=== PATIENT | male | born 1955 | race Caucasian/White ===

== ENCOUNTER 2016-04-17 17:07 | Inpatient (IN) | payer BC ==
[~2016-04-17] VITALS: Ht 180.3 cm; Wt 109.5 kg
[2016-04-18] MEDS ORDERED: CALCIUM 600MG+D1 TAB PO (11:06)
[2016-04-18] MEDS ORDERED: FISH OIL 1000MG1 CAP PO (11:07)
[2016-04-18] MEDS ORDERED: GARLIC100 MG PO (11:08)
[2016-04-18] MEDS ORDERED: COZAAR 50MG50 MG/TAB PO (11:10)
[2016-04-18] MEDS ORDERED: TOPROL XL 25MG25 MG PO (11:11)
[2016-04-18] MEDS ORDERED: ZOCOR 40MG40 MG PO (11:12)
[2016-04-18] MEDS ORDERED: ROXICODONE 55 MG/TAB PO (11:13)
[2016-04-18] MEDS ORDERED: OXYCONTIN 10MG10 MG PO (11:16)
[2016-04-19 05:12] VITALS: BP 125/57; PULSE 74; TEMP 98
[2016-04-19 06:50] VITALS: BP 120/49; PULSE 96; TEMP 98.5
[2016-04-19 18:00] VITALS: BP 121/57; PULSE 91; TEMP 98.1
[2016-04-20 05:14] VITALS: BP 112/56; PULSE 70; TEMP 96.7
[2016-04-20 07:25] LABS: BASO % 0.4 % (0.0-2.0); EOS # 0.2 (0.0-0.7); EOS % 2.4 % (0-4.0); GRAN % 59.8 % (42.2-75.2); LYMPH # 1.9 (1.2-3.4); LYMPH % 22.8 % (20.0-51.0); MEAN CELL VOLUME 93 fl (80.0-100.0); MEAN CORPUSCULAR HGB CONC 33 g/dl (33.0-37.0); MEAN PLATELET VOLUME 10.5 fl (7.4-10.4); MONO # 1.1 (0.1-0.6); MONO % 13.6 % (1.7-9.3); PLATELET COUNT 246 K/mm3 (130-400); RED BLOOD COUNT 3.11 M/mm3 (4.20-5.60); REDCELL DISTRIBUTION WIDTH-CV 12.8 % (11.5-14.5); WHITE BLOOD COUNT 8.4 K/mm3 (4.8-10.8)
[2016-04-20 07:31] LABS: HEMOGLOBIN 9.7 g/dl (13.5-18.0); MEAN CORPUSCULAR HEMOGLOBIN 31 pg (27.0-31.0)
[2016-04-20 07:32] LABS: CALCIUM 8.7 mg/dL (8.4-10.2); CREATININE, serum 0.62 mg/dL (0.66-1.25)
[2016-04-20 18:21] VITALS: BP 118/61; PULSE 93; TEMP 99.1
[2016-04-21 04:16] VITALS: BP 135/98; PULSE 66; TEMP 98
[2016-04-21 18:00] VITALS: BP 128/63; PULSE 87; TEMP 98.1
[2016-04-22 03:35] VITALS: BP 118/54; PULSE 74; TEMP 97.4
[2016-04-22 18:00] VITALS: BP 113/52; PULSE 83; TEMP 97.8
[2016-04-23 03:10] VITALS: BP 120/58; PULSE 67; TEMP 97.8
[2016-04-23 17:49] VITALS: BP 107/50; PULSE 94; TEMP 98.2
[2016-04-24 04:43] VITALS: BP 111/50; PULSE 66; TEMP 98.4
[2016-04-24 16:38] VITALS: BP 126/57; PULSE 86; TEMP 98.5
[2016-04-25 05:08] VITALS: BP 117/56; PULSE 71; TEMP 97.4
[2016-04-25 16:18] VITALS: BP 120/53; PULSE 78; TEMP 98
[2016-04-26 04:40] VITALS: BP 115/51; PULSE 68; TEMP 97.5
[2016-04-26 16:09] VITALS: BP 104/39; PULSE 87; TEMP 97.6
[2016-04-27 06:18] VITALS: BP 127/65; PULSE 75; TEMP 98.7
[2016-04-27 16:02] VITALS: BP 105/56; PULSE 83; TEMP 98.2
[2016-04-28 06:28] VITALS: BP 130/58; PULSE 74; TEMP 98.3
[2016-04-28 16:27] VITALS: BP 97/34; PULSE 79; TEMP 98
[2016-04-29 05:45] VITALS: BP 122/45; PULSE 68; TEMP 98.3
[2016-04-29] MEDS ORDERED: TYLENOL 325MG325 MG PO (11:03)
[2016-04-29] MEDS ORDERED: DEEP SEA 45 ML45 ML NS (11:04)
[2016-04-29] MEDS ORDERED: ROXICODONE 55 MG/TAB PO (11:04)
== END 2016-04-29 13:32 | disposition home or self-care (01) | DRG 950 ==
PROVIDERS: Internal Medicine
DX: S43.51XD Sprain of right acromioclavicular joint, subsequent encounter (principal); V49.9XXD Car occupant (driver) (passenger) injured in unspecified traffic accident, subsequent encounter; I10 Essential (primary) hypertension; S22.41XD Multiple fractures of ribs, right side, subsequent encounter for fracture with routine healing
CPT/HCPCS: 99222-AI; 99232-AI; 99239; J1650

== ENCOUNTER 2016-06-02 08:20 | Day surgery (SDC) | payer BC ==
[2016-06-02] VITALS (509 sets, daily range): BP systolic 107–127; BP diastolic 54–88; PULSE 47–85; TEMP 97–97.9; O2SAT 91–98
[~2016-06-02] VITALS: Ht 180.3 cm; Wt 104.5 kg
[~2016-06-02 08:20] MED LIST: CALCIUM 600MG+D1 TAB PO; COZAAR 50MG50 MG/TAB PO; DEEP SEA 45 ML45 ML NS; FISH OIL 1000MG1 CAP PO; GARLIC100 MG PO; OXYCONTIN 10MG10 MG PO; ROXICODONE 55 MG/TAB PO; TOPROL XL 25MG25 MG PO; TYLENOL 325MG325 MG PO; ZOCOR 40MG40 MG PO
[2016-06-02 09:02] LABS: HEMATOCRIT 38.3 % (42.0-52.0); HEMOGLOBIN 12.5 g/dl (13.5-18.0); MEAN CELL VOLUME 93 fl (80.0-100.0); MEAN CORPUSCULAR HEMOGLOBIN 30 pg (27.0-31.0); MEAN CORPUSCULAR HGB CONC 33 g/dl (33.0-37.0); MEAN PLATELET VOLUME 10.6 fl (7.4-10.4); PLATELET COUNT 270 K/mm3 (130-400); RED BLOOD COUNT 4.11 M/mm3 (4.20-5.60); REDCELL DISTRIBUTION WIDTH-CV 13.3 % (11.5-14.5); WHITE BLOOD COUNT 5.5 K/mm3 (4.8-10.8)
[2016-06-02] MEDS ORDERED: MULTI VITAMINS1 TAB PO (09:06)
[2016-06-02] MEDS ORDERED: FLOMAX 0.40.4 MG/CAP PO (09:06)
[2016-06-02] MEDS ORDERED: COLACE 100100 MG/CAP PO (09:07)
[2016-06-02] MEDS ORDERED: ASPIRIN E.C. 8181 MG PO (09:07)
[2016-06-02] MEDS ORDERED: MELATONIN5 M1 SL (09:08)
[2016-06-02 09:13] LABS: CALCIUM 9.5 mg/dL (8.4-10.2); CREATININE, serum 0.6 mg/dL (0.66-1.25); POTASSIUM 4.7 mmol/L (3.4-5.0)
[2016-06-02 09:17] LABS: PROTHROMBIN TIME 11.6 SECONDS (9.7-12.8)
[2016-06-03] VITALS (531 sets, daily range): BP systolic 111–129; BP diastolic 58–78; PULSE 61–70; TEMP 97.8–98.3; O2SAT 90–98
[2016-06-03 05:49] LABS: BASO % 0.4 % (0.0-2.0); EOS # 0.2 (0.0-0.7); GRAN # 4.2 (1.4-6.5); GRAN % 59.3 % (42.2-75.2); HEMATOCRIT 35.6 % (42.0-52.0); HEMOGLOBIN 11.6 g/dl (13.5-18.0); LYMPH % 28.9 % (20.0-51.0); MEAN CELL VOLUME 93 fl (80.0-100.0); MEAN CORPUSCULAR HEMOGLOBIN 30 pg (27.0-31.0); MEAN CORPUSCULAR HGB CONC 33 g/dl (33.0-37.0); MEAN PLATELET VOLUME 10.2 fl (7.4-10.4); MONO # 0.6 (0.1-0.6); MONO % 8.3 % (1.7-9.3); PLATELET COUNT 256 K/mm3 (130-400); RED BLOOD COUNT 3.82 M/mm3 (4.20-5.60); REDCELL DISTRIBUTION WIDTH-CV 13.5 % (11.5-14.5); WHITE BLOOD COUNT 7.1 K/mm3 (4.8-10.8)
[2016-06-03 06:01] LABS: CALCIUM 8.9 mg/dL (8.4-10.2); CREATININE, serum 0.64 mg/dL (0.66-1.25); POTASSIUM 4.2 mmol/L (3.4-5.0)
[2016-06-03] MEDS ORDERED: BRILINTA90 MG PO (11:41)
[2016-06-03] MEDS ORDERED: NITRO-DUR0.2 MG/PAT TD (14:03)
== END 2016-06-03 14:36 | disposition home or self-care (01) ==
LOC: COL.CAR 08:20 → ICU 12:17 → IMCU 18:00 → COL.CAR 06-03 14:36
PROVIDERS: Internal Medicine Cardiovascular Disease
DX: I25.10 Atherosclerotic heart disease of native coronary artery without angina pectoris (principal); R06.00 Dyspnea, unspecified; R07.9 Chest pain, unspecified; I10 Essential (primary) hypertension; E78.5 Hyperlipidemia, unspecified; E11.9 Type 2 diabetes mellitus without complications; G47.33 Obstructive sleep apnea (adult) (pediatric); Z87.891 Personal history of nicotine dependence; E66.9 Obesity, unspecified
CPT/HCPCS: OP; C1725; C1760; C1769; C1874; C1887; C9600; J0583; J2250; J3010; Q9967

== ENCOUNTER → 2017-05-10 | Outpatient (CLI) | payer BC ==
[~2017-05-10] MED LIST changes: +ASPIRIN E.C. 8181 MG PO; +BRILINTA90 MG PO; +COLACE 100100 MG/CAP PO; +FLOMAX 0.40.4 MG/CAP PO; +MELATONIN5 M1 SL; +MULTI VITAMINS1 TAB PO; +NITRO-DUR0.2 MG/PAT TD
== END ==
LOC: COL.RAD 12:17
DX: I62.00 Nontraumatic subdural hemorrhage, unspecified (principal)

== ENCOUNTER 2019-01-20 14:25 | Inpatient (IN) | payer BC ==
[~2019-01-20] VITALS: Ht 180.3 cm; Wt 101.8 kg
[2019-01-23] VITALS (12 sets, daily range): BP systolic 103–131; BP diastolic 40–71; PULSE 48–73; TEMP 97.3–98.3
[2019-01-23] MEDS ORDERED: PLAVIX 75MG TAB75 MG PO (02:49)
[2019-01-23] MEDS ORDERED: EPA FISH OIL1 SGL PO (02:50)
[2019-01-23] MEDS ORDERED: LIPITOR 40MG TA40 MG PO (02:54)
[2019-01-23] MEDS ORDERED: FOLIC ACID 11 MG/TA1 PO (04:22)
[2019-01-23] MEDS ORDERED: NATURAL IRON65 MG (04:24)
[2019-01-23] MEDS ORDERED: VITAMIN C500 MG PO (04:26)
[2019-01-23] MEDS ORDERED: NORCO 325 MG-51 TAB PO (04:27)
--- NOTE | 2019-01-23 09:50 | NUR ---
returned to room per bed from PACU, awake and alert, IV infusing and placed on pump at 125ml/hr, O2 on at 2L/NC, SCDs placed on bilaterally and SUZANNE hose on bilaterally, dia wrap dressing to left leg CD&I and ice pack on, has sensation to top of thighs and unable to move lower extremities, rolled to side and no wrinkles in linens or wires under patient, full assessment completed, see interventions for further info, takes sips of water and tolerates well, friend at bedside
[2019-01-23] MEDS ORDERED: NITROSTAT0.4 MG/TAB SL (10:09)
--- NOTE | 2019-01-23 10:20 | NUR ---
has gross motor movement to bilateral lower extremties and sensation to calf, takes water and tolerates well
--- NOTE | 2019-01-23 11:30 | NUR ---
now feels urge to void but does not have full sensation, urinal provided
--- NOTE | 2019-01-23 11:30 | NUR ---
has sensation to feet and is able to do ankle pumps bilateral lower extremities, sitting up in bed, denies needs
--- NOTE | 2019-01-23 12:12 | NUR ---
has not been able to void at this time but is continuing to try, will bladder scan if unable
--- NOTE | 2019-01-23 12:30 | NUR ---
was finally able to void approx 100ml clear yellow urine, moving legs bilaterally, will notify physical therapy for initial eval
--- NOTE | 2019-01-23 13:28 | NUR ---
PAM met with the patient to discuss discharge plan. The patient lives alone outside of [place]. He states that his girlfriend, Jeanne Andino (ph#[phone]), also lives outside of [place]. He reports independence with ADLs and has a cane, walker, crutches, and showerchair. The patient's PCP is Dr. Caleb Lott and he receives his medications at [facility] in [place]. He reports no difficulties obtaining his meds. The patient does not have advanced directives in EMR, but he states that he does have them completed and that he will ask Jeanne to bring up a copy. He states that Jeanne is his DPOA-HC. The patient plans to return home and receive outpatient therapy at [facility] upon discharge. No additional needs at this time.
--- NOTE | 2019-01-23 13:33 | NUR ---
physical therapy in to work with patient, assisted up to bathroom and voided large amount
--- NOTE | 2019-01-23 14:15 | NUR ---
sitting up in chair reading the paper, medicated with scheduled tyleno, reminded him if begins having increased pain to request something more for the pain, verbalizes understanding
--- NOTE | 2019-01-23 17:44 | NUR ---
sitting up in recliner eating supper
--- NOTE | 2019-01-23 19:08 | NUR ---
bedside shift report given to JOHN Granado
[2019-01-24 04:14] VITALS: BP 138/62; PULSE 62; TEMP 97.7
--- NOTE | 2019-01-24 07:31 | NUR ---
Report from Vannesa LOPEZ.
[2019-01-24 07:54] LABS: HEMOGLOBIN 11.1 g/dl (13.5-18.0)
[2019-01-24 07:56] LABS: HEMATOCRIT 33.7 % (42.0-52.0)
[2019-01-24 08:45] VITALS: BP 114/45; PULSE 71; TEMP 97.7
--- NOTE | 2019-01-24 09:14 | NUR ---
Initial visit; Patient thanked [employer] Supervisor for stopping by, listening and offering God's blessings.
[2019-01-24 12:00] VITALS: BP 124/62; PULSE 63; TEMP 97.9
[2019-01-24 17:06] VITALS: BP 142/62; PULSE 58; TEMP 98.1
[2019-01-24 20:00] VITALS: BP 146/68; PULSE 57; TEMP 98.1
[2019-01-25] VITALS: BP 149/77; PULSE 59; TEMP 97.9
--- NOTE | 2019-01-25 01:51 | NUR ---
PATIENT DOING WELL THROUGHOUT NIGHT. BRACE APPLIED TO R KNEE PER ORDER WITH CRYOCUFF ON TOP. AMBULATED TO BATHROOM. C/O MILD PAIN, DENIES NEED FOR PAIN MEDICATION AT THIS TIME. CRYOCUFF REFILLED WITH FRESH ICE. WORE CPAP TO BED WITHOUT ISSUE. NO FURHTER NEEDS AT THIS TIME. WILL CONTINUE TO MONITOR.
[2019-01-25 04:00] VITALS: BP 130/68; PULSE 69; TEMP 98.6
[2019-01-25] MEDS ORDERED: ROXICODONE 55 MG/TAB PO (07:07)
[2019-01-25] MEDS ORDERED: TYLENOL 500MG500 MG PO (07:08)
[2019-01-25 07:11] LABS: HEMATOCRIT 33.5 % (42.0-52.0); HEMOGLOBIN 11.1 g/dl (13.5-18.0)
--- NOTE | 2019-01-25 07:22 | NUR ---
Report from Emmie LOPEZ.
[2019-01-25 08:16] VITALS: BP 139/64; PULSE 79; TEMP 98.2
--- NOTE | 2019-01-25 08:31 | NUR ---
PATIENT OUT TO [facility] FOR THERAPY. COMPLETED STAIRS RETURNED TO ROOM. PLAN ON DISCHARGE LATER TODAY.
--- NOTE | 2019-01-25 12:35 | NUR ---
DISCHARGE INSTRUCTIONS REVIEWED WITH PT AND GIRLFRIEND. QUESTIONS SOLICITED AND ANSWERED. PT TAKEN PER WHEEL CHAIR TO FRONT.
== END 2019-01-25 12:36 | disposition home or self-care (01) | DRG 470 ==
LOC: JCC 01-23 05:10
PROVIDERS: Physician Assistant; ADMIT Orthopaedic Surgery
PROC: 0SRD0J9 Replacement of Left Knee Joint with Synthetic Substitute, Cemented, Open Approach (ICD-10-PCS; principal; 2019-01-23 07:15)
DX: M17.12 Unilateral primary osteoarthritis, left knee (principal); I25.10 Atherosclerotic heart disease of native coronary artery without angina pectoris; I10 Essential (primary) hypertension; G47.33 Obstructive sleep apnea (adult) (pediatric); N40.0 Benign prostatic hyperplasia without lower urinary tract symptoms; F41.9 Anxiety disorder, unspecified; E11.9 Type 2 diabetes mellitus without complications; I07.1 Rheumatic tricuspid insufficiency; Z86.73 Personal history of transient ischemic attack (TIA), and cerebral infarction without residual deficits; Z87.891 Personal history of nicotine dependence
CPT/HCPCS: A9284; C1776; J0690; J1100; J2250; J2405; J2704; J3010; J7120; J7121

== ENCOUNTER → 2019-09-18 | Outpatient (CLI) | payer MEDICARE, BC ==
[~2019-09-18] MED LIST changes: +EPA FISH OIL1 SGL PO; +FOLIC ACID 11 MG/TA1 PO; +LIPITOR 40MG TA40 MG PO; +NATURAL IRON65 MG; +NITROSTAT0.4 MG/TAB SL; +NORCO 325 MG-51 TAB PO; +PLAVIX 75MG TAB75 MG PO; +TYLENOL 500MG500 MG PO; +VITAMIN C500 MG PO
== END ==
LOC: MC.RAD 12:49
DX: N62 Hypertrophy of breast (principal)